=== PATIENT | female | born 1960 | race Caucasian/White ===

== ENCOUNTER 2020-11-17 03:07 | Emergency (ER) | payer BC ==
[~2020-11-17 03:07] MED LIST: PSEUDOEPHEDRINE60 M2 PO; TYLENOL EXTRA500 M1 PO
[2020-11-17 04:19] LABS: HEMATOCRIT 43.5 % (37.0-47.0); HEMOGLOBIN 14.8 g/dL (12.5-16.0); MEAN CELL VOLUME 91 fl (78-100); MEAN CORPUSCULAR HEMOGLOBIN 31 pg (27-31); MEAN CORPUSCULAR HGB CONC 34 g/dL (33-37); MEAN PLATELET VOLUME 10.3 fl (7.4-10.4); PLATELET COUNT 271 K/mm3 (130-400); RED BLOOD COUNT 4.78 M/mm3 (4.10-5.30); RED CELL DISTRIBUTION WIDTH 12.7 % (11.5-14.5); WHITE BLOOD COUNT 13.3 K/mm3 (4.8-10.8)
[2020-11-17 04:26] LABS: POTASSIUM 4.4 mmol/L (3.5-5.1)
[2020-11-17 04:27] LABS: CALCIUM 9.7 mg/dL (8.3-10.5)
[2020-11-17 04:44] LABS: ALBUMIN 4.7 g/dL (3.5-5.0)
[2020-11-17 04:47] LABS: PARTIAL THROMBOPLASTIN TIME 22.3 SECONDS (21.0-32.0); PROTHROMBIN TIME 9.5 SECONDS (9.0-12.0); TOTAL PROTEIN 7.6 g/dL (6.4-8.3)
[2020-11-17 04:48] LABS: TOTAL BILIRUBIN 0.7 mg/dL (0.2-1.2)
[2020-11-17 05:05] LABS: LYMPHOCYTE 5 % (20-51); MONOCYTE 8 % (3-10); NEUTROPHILS 87 % (42-75)
[2020-11-17 05:06] LABS: PH-URINE 6.5 (5.0 - 8.0); URINE APPEARANCE HAZY; URINE COLOR YELLOW; URINE GLUCOSE 50 mg/dL mg/dL (NEGATIVE); URINE KETONE 1+ (NEGATIVE); URINE PROTEIN(semi-quant) 1+ mg/dL (NEGATIVE)
[2020-11-17 05:07] LABS: URINE BILIRUBIN NEGATIVE (NEGATIVE); URINE BLOOD 50 ery/uL (NEGATIVE); URINE LEUKOCYTE ESTERASE TRACE (NEGATIVE); URINE NITRATE NEGATIVE (NEGATIVE); URINE UROBILINOGEN NORMAL (NORMAL)
[2020-11-17 05:08] LABS: URINE MUCUS PRESENT (NOT PRESENT)
[2020-11-17] MEDS ORDERED: CEPHALEXIN500 M1 PO (06:38)
[2020-11-17] MEDS ORDERED: CYCLOBENZ5 MG PO (06:38)
[2020-11-17] MEDS ORDERED: PROMETHAZINE12.5 M5 PO (06:46)
[2020-11-17 07:18] VITALS: BP 145/83
== END 2020-11-17 07:16 | disposition home or self-care (01) ==
LOC: ED 03:07
PROVIDERS: Nurse Practitioner
DX: M62.838 Other muscle spasm (principal); N39.0 Urinary tract infection, site not specified; Z88.6 Allergy status to analgesic agent; Z87.891 Personal history of nicotine dependence
CPT/HCPCS: J0696; J1885; J2550; J3360; J7030

== ENCOUNTER → 2021-07-05 | Outpatient (CLI) | payer BC ==
[~2021-07-05] MED LIST changes: +CEPHALEXIN500 M1 PO; +CYCLOBENZ5 MG PO; +PROMETHAZINE12.5 M5 PO
== END ==
LOC: RAD 16:32
DX: M47.812 Spondylosis without myelopathy or radiculopathy, cervical region (principal)

== ENCOUNTER 2021-07-12 07:43 | Outpatient (RCR) | payer BC | END 2021-08-02 | disposition home or self-care (01) | LOC: PT | DX: M25.512 Pain in left shoulder (principal); M54.2 Cervicalgia ==

== ENCOUNTER → 2021-07-29 | Outpatient (CLI) | payer BC | LOC: RAD 15:05 | DX: M48.02 Spinal stenosis, cervical region (principal); E04.2 Nontoxic multinodular goiter; M25.512 Pain in left shoulder ==

== ENCOUNTER 2021-08-03 16:00 | Outpatient (RCR) | payer BC | END 2021-08-30 | disposition home or self-care (01) | LOC: PT | DX: M25.512 Pain in left shoulder (principal); M54.2 Cervicalgia ==

== ENCOUNTER → 2021-10-22 | Outpatient (CLI) | payer BC | LOC: RAD 09:43 | DX: E04.2 Nontoxic multinodular goiter (principal) ==

== ENCOUNTER 2021-10-26 14:59 | Outpatient (RCR) | payer BC | END 2021-10-30 | disposition home or self-care (01) | LOC: PT | DX: M25.512 Pain in left shoulder (principal); M54.2 Cervicalgia ==

== ENCOUNTER → 2021-11-01 | Outpatient (CLI) | payer BC | LOC: RAD 06:47 | DX: E04.1 Nontoxic single thyroid nodule (principal) ==

== ENCOUNTER → 2021-11-11 | Outpatient (CLI) | payer BC | LOC: LAB 06:54 | DX: Z01.812 Encounter for preprocedural laboratory examination (principal); M47.812 Spondylosis without myelopathy or radiculopathy, cervical region ==

== ENCOUNTER 2021-11-22 15:46 | Outpatient (RCR) | payer BC | END 2021-11-30 | disposition home or self-care (01) | LOC: PT | DX: M25.512 Pain in left shoulder (principal) ==

== ENCOUNTER → 2022-03-11 | Outpatient (CLI) | payer BC | LOC: RAD 14:06 | DX: E04.2 Nontoxic multinodular goiter (principal); R05.9 Cough, unspecified ==

== ENCOUNTER 2022-05-11 15:17 | Outpatient (RCR) | payer BC | END 2022-06-01 | disposition home or self-care (01) | LOC: PT | DX: Z98.1 Arthrodesis status (principal) ==

== ENCOUNTER 2022-07-05 08:00 | Outpatient (RCR) | payer BC | END 2022-08-02 | disposition home or self-care (01) | LOC: PT | DX: M54.2 Cervicalgia (principal) ==